=== PATIENT | male | born 1990 | race Caucasian/White ===

== ENCOUNTER 2019-06-10 11:46 | Emergency (ER) | payer OTHER, SELFPAY ==
[2019-06-10 11:47] VITALS: BP 151/101; PULSE 89; RESP 16; TEMP 36.6; O2SAT 99; BMI 24.5
--- NOTE | 2019-06-10 12:10 | EKG12_ITS ---
Test Reason : R ARM PAIN TO CHEST Blood Pressure : / mmHG Vent. Rate : 069 BPM Atrial Rate : 083 BPM P-R Int : 132 ms QRS Dur : 080 ms QT Int : 350 ms P-R-T Axes : 057 056 014 degrees QTc Int : 375 ms Sinus rhythm with marked sinus arrhythmia Otherwise normal ECG Confirmed by JARROD BLUM, EVELYNE ([id number]), supervising editor trailer MANAV GAMINO ([id number]) on 06/15/2019 2:30:52 PM Referred By: GINA Confirmed By:MIRYAM GARAY MD
--- NOTE | 2019-06-10 12:17 | RAD_ITS ---
STUDY: X-RAY CHEST REASON FOR EXAM: Male, 28 years old. CHEST PAIN, RIGHT ARM PAIN TECHNIQUE: Single AP portable view of the chest. COMPARISON: Comparison is made with prior examination dated December 08, 2013. FINDINGS: The lungs are clear and expanded. There is no demonstrated pleural abnormality. Normal size heart. Normal mediastinum and brady. Normal visualized pulmonary arteries. Normal visualized aortic arch and descending thoracic aorta. Normal visualized thoracic spine. Normal visualized ribs, clavicles, and shoulders. There is no demonstrated abnormality of the visualized soft tissue structures of the upper abdomen. RAD/Chest 1 View (Portable) IMPRESSION: Normal x-ray examination of the chest. Electronically Signed: Fercho Stover, at 12:28 EST , Service support ,
[2019-06-10] MEDS: 0.9% Normal Saline 1,000 ML 1000 ML IV (12:35)
[2019-06-10 12:39] LABS: Absolute Lymphocyte Count 0.78 X10^3/uL (0.83-4.51); Absolute Neutrophil Count 4.8 X10^3/uL (2.0-7.7); Basophil# 0.03 X10^3/uL; Basophil% 0.5 % (0-1); Eosinophil# 0.22 X10^3/uL; Eosinophils% 3.4 % (0-5); Hematocrit 41.7 % (40-54); Hemoglobin 13.8 g/dL (13.0-16.5); Lymphocyte # 0.78 X10^3/ul (4.0); Mean Corp Hgb Conc 33.1 g/dL (32-36); Mean Corpuscular Hgb 29.2 pg (27.0-32.0); Mean Corpuscular Volume 88.3 fL (80-94); Mean Platelet Vol. 9.6 fl (6.2-12.0); Monocyte# 0.62 X10^3/uL; Monocyte% 9.6 % (0-10); NRBC Flagged by Analyzer 0 % (0-5); Neutrophil # 4.81 X10^3/uL (2.7-7.7); Neutrophil % 74.2 % (47-70); Platelet Count 212 K/mm3 (150-450); RBC Distribution Width CV 12.4 % (11.6-14.6); RBC Distribution Width SD 40.2 fl (35.1-43.9); Red Blood Count 4.72 M/mm3 (4.6-6.2); White Blood Count 6.5 K/mm3 (4.4-11.0)
--- NOTE | 2019-06-10 12:41 | ED.VISSUMM ---
- ER Visit Summary Date of Service: 06/10/19 Chief Complaint: Right arm and chest pain History of Present Illness: The patient is a [address] Rober Borja. He reports that since eating dinner last night at 7 PM he has had intermittent right arm and last seconds at a time. The sharp pain is 6 out of 10 worse and is pain-free currently. Is worsened by nothing. Is relieved by walking around. He denies any associated nausea, vomiting, diaphoresis, shortness of breath. Reports he had similar symptoms off and on for approximately 1 year. Physical Examination: Vitals: Stable. Afebrile. General: Well-nourished and well-developed. Head: Normocephalic atraumatic. Neck: Supple, no lymphadenopathy. No JVD. Nontender. Cardiovascular: Regular rate and rhythm. No murmurs. Respiratory: No respiratory distress. Clear to auscultation bilaterally. Abdominal: Soft, nontender, nondistended, normal bowel sounds. No guarding, rebound, or peritoneal signs. Back: Nontender. Extremities: Nontender, no edema. Skin: Normal color, no rash. Neurologic: Alert and oriented ?3. Cranial nerves II through XII are intact. Normal strength and sensation. Psych: Normal affect. Test Results: EKG is sinus at 69 with a tube inversion lead III. No acute changes. Troponin is negative. Chem-7 is normal. CBC shows segmented neutrophils 74 lymphocytes 12. Chest x-ray is normal. Emergency Department Course and Treatment: Patient was given a GI cocktail. He is resting comfortably. He has had some relief from this. Treatment Plan: Patient be discharged Prilosec. Instructed follow-up with Dr. Rober Borja iii in 1 week for another exam. Return to the emergency department for any worsening symptoms. Disposition: To home in improved and stable condition. Impression: 1. Atypical chest pain. This note was generated with [employer] dictation software. It may contain incorrect words, spelling, and punctuation that were not noted in review of the chart prior to signing ED Disposition - Plan for ED Patient: Instructions: CHEST PAIN, Uncertain Cause Prescriptions: Omeprazole [Prilosec] 20 mg PO DAILY #30 capsule Referrals: Rober Borja III, MD [Primary Care Provider] - 1 Week
[2019-06-10 12:57] LABS: Anion Gap 5 (5-15); BUN 14 mg/dL (7-18); BUN/Creat Ratio 13.7 RATIO (10-20); Calcium,Total 8.6 mg/dL (8.5-10.1); Chloride 105 mmol/L (98-107); Creatinine, Serum 1.02 mg/dL (0.70-1.30); EST Glomerular Filtration Rate 92 mL/min (>60); Est Glom Filt Rate - Afr Amer 112 mL/min (>60); Estimated Creatinine Clearance 118.34 ml/min; Glucose 92 mg/dL (74-106); Potassium 4.1 mmol/L (3.5-5.1); Sodium Level 137 mmol/L (136-145)
[2019-06-10 13:28] VITALS: BP 120/71; PULSE 94; RESP 15; O2SAT 99
[2019-06-10] MEDS: Mag Hydrox/Al Hydrox/Simeth 30 ML UDC PO (13:32)
== END 2019-06-10 13:37 | disposition home or self-care (01) ==
LOC: ED 12:59
PROVIDERS: Emergency Provider Emergency Medicine; PCP Family Medicine
DX: R07.89 Other chest pain (principal); R05 Cough
CPT/HCPCS: 71045; 80048; 84484; 85025; 93005; 96360; 99283; J7030; A4216